=== PATIENT | male | born 1990 | race Caucasian/White ===

== ENCOUNTER 2023-08-19 12:28 | Emergency (ER) | payer OTHER, SELFPAY ==
[2023-08-19 12:30] VITALS: BP 154/89
--- NOTE | 2023-08-19 13:46 | ED.GENMED ---
History of Present Illness
General
Chief Complaint: Skin Surface Trauma
Source: patient and spouse
Exam Limitations: none
Time Seen by Provider: 08/19/23 12:39
Nursing documentation reviewed up to this point in time: agreed with
Travel History
Have you had any contact with someone who has COVID-19?: No
Do you have any symptoms of coronavirus? Fever > 100 degrees, chills, cough, shortness of breath, sore throat, loss of taste or smell, muscle aches, or headache?: No
History of Present Illness
History of Present Illness:
33-year-old male with no chronic medical issues presents for evaluation of a finger laceration. Patient was lifting appliance and apparently the bottom of the appliance was wet and it slipped and sliced his finger. He sustained a minor superficial
abrasion to the right index finger and an avulsion/laceration to the tip of the right middle finger. Unsure of his last tetanus shot. No other injuries or complaints.
Past History
Past History
ED Past Medical History: None
Social History
Tobacco: Smoker
Personal: Single
Living: with roommate
Employment: Employed
Review of Systems
Review of Systems
All Other Systems: ROS reviewed and negative except as documented in HPI and ROS
Skin: Reports other (Finger laceration)
Phy Exam
Physical Exam
Physical Exam:
General: Well appearing and non-toxic
HEENT: protecting airway
Neck: appears supple
CV: No evidence of cyanosis
Resp: No accessory muscle use
Abd: Non-distended
Extremities: No deformities
Neuro: Alert
Psych: Normal affect
Skin: Patient has a superficial abrasion to the pad of the right index finger; patient has avulsion of the pad of the right middle finger�he has an avulsed approximately 3 cm circumference circular poorly vascularized flap of skin/tissue on the pad
of the finger
Scores
Heart Failure Risk
Heart Failure Risk Score: Not Applicable
Heart Score for Chest Pain Patients
STEMI patient?: Not applicable
Withdrawal Assessment of Alcohol
Withdrawal Assessment Completed?: Not applicable
Course
Orders/Labs/Results
Orders:
Orders
08/19/23 12:41
Tetanus/Diphth/Acelpertussis [Adacel] 0.5 ml IM .ONCE ONE
Vital Signs
Initial and Last Documented VS:
Initial Vital Signs
Temp Pulse Resp BP Pulse Ox
36.8 C 94 18 154/89 99
08/19/23 12:30 08/19/23 12:30 08/19/23 12:30 08/19/23 12:30 08/19/23 12:30
Last Documented Vital Signs
Temp Pulse Resp BP Pulse Ox
36.8 C 94 18 154/89 99
08/19/23 12:30 08/19/23 12:30 08/19/23 12:30 08/19/23 12:30 08/19/23 12:30
Procedures
Laceration Closure
Right Third Finger:
Status of Wound: dirty
Size of Wound in cm: 3
Description of Wound Edges: flap-poorly vascularized
Preparation: cleaned with Betadine
Anesthesia: Digital-Regional
Revision/Debridement: minor revision
Wound exploration: extensive cleaning of contaminated wound
Type of Closure: single layer closure
Skin Closure Material: 6-0 nylon
Number of sutures: 10
MDM/Problems Addressed
Differential Diagnosis Includes:
Laceration/avulsion
MDM/Problems Addressed:
33-year-old male presents for evaluation of finger injury as described above. Hypertensive otherwise normal vitals. Exam as above. Unsure of his last tetanus�we updated his tetanus shot here. He has an avulsed flap of tissue on the pad of the
right middle finger�there is a good amount of tissue but it appears to be poorly vascularized�I explained to the patient that there is a chance that this flap is not viable however we did sutured in place in an attempt to salvage tissue. He will
return in a week for suture removal. Will start on prophylactic antibiotic. Wounds were vigorously irrigated and cleaned with Betadine sponge prior to repair. Spoke about return precautions including all signs of infection. All questions
answered.
*Pulse Oximetry
Patient hypoxic: no
*Critical Care Note
Total Time (30-74mins, 75-104mins- exclusive of procedures): Not Applicable
Data Reviewed
Source: patient and spouse
ED Attending Note
-
Portions of this chart may have been created with voice recognition software.� Occasional wrong word or��sound alike� substitutions may have occurred due to the inherent limitations of voice recognition software.
Discharge Plan
Departure
Patient Disposition: Home (Routine Discharge)
Date of Disposition: 08/19/23
Time of Disposition: 13:45
Patient with high blood pressure during this ER visit?: Yes
Discharge Problem:
Finger laceration
Instructions: Laceration Repair With Stitches (DC)
Prescriptions:
New
cephalexin 500 mg capsule
500 mg PO TID 5 Days Qty: 15 0RF
No Action
amoxicillin 875 MG tablet
875 mg PO BID Qty: 20 0RF
Activity Restrictions/Additional Instructions:
You were seen today for an injury to your finger. You had a flap of skin on the tip of the finger that was repaired with stitches. You received 10 total stitches. You should return to the emergency room in 7 to 10 days to have your stitches
removed; you may also follow-up with your primary doctor or an urgent care to have stitches removed. If you notice any signs of infection you should return immediately. You were started on a prophylactic antibiotic that you should take for the
next few days as prescribed to prevent infection.
Thank you for visiting the Emergency Department at [facility].
1. Please schedule a follow up appointment as directed. Call first thing tomorrow morning to make an appointment.
2. If indicated, please take your medications as instructed and indicated on discharge paperwork.
3. If any of your symptoms do not improve, or persist, or become more severe within 6-12 hours, please return to the emergency department for further care.
4. Please return to the emergency department if you develop a headache, neck pain/stiffness, fever greater than 100.4F, chest pain, shortness of breath, persistent nausea, vomiting, slurred speech, difficulty walking, numbness/tingling, weakness,
signs of infection or any other symptoms that are worrisome to you.
Please call [phone] if you have any questions.
Interventions
Interventions:
*Risk Screen - Suicide Last Done: 08/19/23 12:30
*General Assessment Last Done: 08/19/23 12:30
*Neglect/Abuse Screening Last Done: 08/19/23 12:30
ED- Fall Risk Assessment Last Done: 08/19/23 14:05
*ED COVID-19 Vaccine History Last Done: 08/19/23 14:05
*Nursing Disposition Last Done: 08/19/23 14:05
ED-Skin Assessment Last Done: 08/19/23 14:05
Discharge Date and Time
Discharge Date/Time: 08/19/23 14:05
[2023-08-19] MEDS: ADACEL 0.5 ML IM (13:53)
== END 2023-08-19 14:05 | disposition home or self-care (01) ==
LOC: EMR 12:28
PROVIDERS: EMERGENCY PHYSICIAN Emergency Medicine
DX: S60.410A Abrasion of right index finger, initial encounter (principal); W45.8XXA Other foreign body or object entering through skin, initial encounter; I10 Essential (primary) hypertension; F17.200 Nicotine dependence, unspecified, uncomplicated
CPT/HCPCS: 99282; 12002; 90471; 90715